=== PATIENT | male | born 1985 | race African-American/Black ===

== ENCOUNTER 2024-08-30 08:42 | Emergency (ER) | payer SELFPAY ==
[~2024-08-30] VITALS: Ht 170.2 cm; Wt 64.0 kg
[2024-08-30 08:51] VITALS: O2SAT 100
[2024-08-30 09:26] LABS: HEMOGLOBIN. 12.8 g/dL (14.0-18.0); MEAN CORPUSCULAR HEMOGLOBIN 29.1 pg (28.0-32.0); MEAN CORPUSCULAR HGB CONC 33.8 g/dL (31.0-37.0); MEAN CORPUSCULAR VOLUME 86.2 fL (80.0-94.0); MEAN PLATELET VOLUME 7.7 fl (7.4-10.4); PLATELET 214 x1000/uL (130-400); RED BLOOD CELL COUNT 4.41 mill/uL (4.7-6.1); RED CELL DISTRIBUTION WIDTH 14.4 % (11.6-14.6); WHITE BLOOD COUNT 7.6 x1000/uL (4.5-11.0)
[2024-08-30 09:38] LABS: CHLORIDE 107 mEq/L (98-107); POTASSIUM 4.1 mEq/L (3.5-5.1); PROTHROMBIN TIME 10.4 sec (9.6-11.0); SODIUM 136 mEq/L (136-145)
[2024-08-30 09:39] LABS: CALCIUM 9.2 mg/dL (8.7-10.4); CARBON DIOXIDE 28 mEq/L (21-32)
[2024-08-30 09:44] LABS: CREATININE 1.3 mg/dL (0.6-1.3); GLUCOSE 102 mg/dL (70-105); UREA NITROGEN BLOOD 15 mg/dL (9-23)
[2024-08-30 09:59] LABS: DIFFERENTIAL COMMENT 1
[2024-08-30 10:03] VITALS: TEMP 37
[2024-08-30 10:22] LABS: PLATELET ESTIMATE NORMAL
[2024-08-30] MEDS: ACETAMINOPHEN 325MG TABLET PO ONE (10:29)
[2024-08-30 11:24] LABS: CLARITY URINE CLEAR (CLEAR); COLOR URINE YELLOW (YELLOW); GLUCOSE URINE NEGATIVE (NEGATIVE); KETONES URINE TRACE (NEGATIVE); LEUKOCYTE ESTERASE URINE TRACE (NEGATIVE); NITRITE URINE NEGATIVE (NEGATIVE); OCCULT BLOOD URINE NEGATIVE (NEGATIVE); PH URINE 6.5 (4.5-8.0); PROTEIN URINE NEGATIVE (NEGATIVE); SPECIFIC GRAVITY URINE 1.032 (1.005-1.030)
[2024-08-30] MEDS ORDERED: TOPUD PO (11:37)
[2024-08-30 11:42] LABS: SQUAMOUS EPITHELIAL CELL URINE RARE /lpf (RARE/1+)
[2024-08-30 11:43] LABS: BACTERIA URINE TRACE; MUCUS URINE TRACE /lpf (NONE/TRACE)
[2024-08-30 11:44] LABS: RBC URINE 0-2 /hpf (0-2)
[2024-08-30 11:45] VITALS: BP 110/75; PULSE 69; RESP 17; O2SAT 100
== END 2024-08-30 12:10 | disposition home or self-care (01) ==
LOC: ER 08:42
DX: M54.50 Low back pain, unspecified (principal); F12.90 Cannabis use, unspecified, uncomplicated; R10.9 Unspecified abdominal pain; Z79.899 Other long term (current) drug therapy
CPT/HCPCS: 36415; 76857; 80048; 81003; 85025; 99284